=== PATIENT | male | born 1960 | race Caucasian/White ===

== ENCOUNTER → 2016-09-19 | Outpatient (CLI) | payer OTHER ==
--- NOTE | 2016-09-19 08:25 | MR ---
EXAMINATION TYPE: MR lumbar spine wo con DATE OF EXAM: 09/19/2016 7:36 AM COMPARISON: NONE HISTORY: Low back pain, lumbosacral radiculopathy, and lumbar region spondylolisthesis all per order. Back pain for 18 months causing pain into bilateral buttocks and thigh per patient TECHNIQUE: Multiplanar, multisequence imaging of the lumbar spine is performed without IV contrast. FINDINGS: Sagittal images of the lumbar spine show vertebral body heights and alignment to appear sat isfactory. Disc desiccation L3-L4-L5-S1 levels is seen, disc space heights are fairly well-maintained . Posterior disc herniations are seen on sagittal images from L2-L3 through L5-S1 levels. The conus medullaris is normal in position and signal ending at superior L1 vertebral body level. The bone mar row signal intensity is within normal limits. Mild anterior spurring L3-L4 level is seen. Axial images at the T12-L1 level show mild facet arthropathy otherwise are felt unremarkable. Axial images at the L1-L2 level show mild facet degenerative changes and ligament flavum hypertrophy effacing the posterior lateral thecal sac on axial image 22. There is mild to moderate broad-based po sterior disc protrusion mildly effacing anterior thecal sac and causing mild bilateral anterior infer ior neural foraminal narrowing. Axial images at the L2-L3 level show moderate broad disc bulge with more prominent right foraminal/la teral disc protrusion component effacing anterior thecal sac on axial image 17. There are mild-to-mod erate facet degenerative changes effacing posterior lateral thecal sac at this level. There is mild t o moderate right and mild left-sided anterior inferior neural foraminal narrowing at this level ident ified. Axial images at the L3-L4 level show mild to moderate facet degenerative changes and ligamentum flavu m hypertrophy effacing posterior lateral thecal sac. There is moderate broad disc bulge effacing ante rior thecal sac. There is mild to moderate bilateral anterior inferior neural foraminal narrowing at this level identified. Axial images at the L4-L5 level show mild to moderate facet degenerative changes bilaterally. There i s mild to moderate broad-based right foraminal disc protrusion. Spinal canal is fairly well preserved . There is moderate left and more severe right-sided neural foraminal narrowing with effacement of ri ght L4 nerve suspected seen best on sagittal image 10. Axial images at the L5-S1 level show mild/moderate facet degenerative changes bilaterally. There is c entral disc protrusion seen but spinal canal is preserved. There is mild to moderate bilateral neural foraminal narrowing at this level identified. Paraspinal muscle bulk is maintained. No suspicious retroperitoneal findings identified. IMPRESSION: Multilevel degenerative changes in the lumbar spine as detailed above, multilevel spinal canal effacement is seen most prominent at L2-L3 level. Multilevel bilateral neural foraminal narrowi ng is seen most prominent right L4-L5 level with effacement of right L4 nerve felt present.
== END | disposition home or self-care (01) ==
LOC: RADMRIMAIN 06:34
PROVIDERS: ATTEND Physical Medicine & Rehabilitation
DX: M99.73 Connective tissue and disc stenosis of intervertebral foramina of lumbar region (principal); M47.26 Other spondylosis with radiculopathy, lumbar region
CPT/HCPCS: 72148